=== PATIENT | male | born 1960 | race African-American/Black ===

== ENCOUNTER 2018-01-13 16:41 | Emergency (ER) | payer SELFPAY ==
[~2018-01-13] VITALS: Ht 185.4 cm; Wt 90.7 kg
[2018-01-13] MEDS ORDERED: Norco 5mg/325mg tab ORAL ONE (17:30)
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
[2018-01-13] MEDS ORDERED: ROBAXIN-750750 MG PO (17:42)
[2018-01-13] MEDS ORDERED: IBUPROFEN600 MG ORAL (17:42)
[2018-01-13] MEDS ORDERED: KEFLEX500 MG ORAL (17:42)
[2018-01-13 17:59] VITALS: BP 170/92
--- NOTE | 2018-01-14 10:47 | Diagnostic Imaging Report ---
Indication: Trauma Technique: XRAY Chest 1v Comparison: None Findings: Heart size and mediastinal contours are within normal limits. There is no focal airspace consolidation, pleural effusion or pneumothorax. There are fracture deformities of the posterior right fifth sixth and seventh ribs as there is some callus formation suggesting these are subacute or chronic. There are some degenerative changes of the spine. IMPRESSION: Fracture deformities of the right posterior fifth, sixth and seventh ribs, likely chronic as there is suggestion of some callus. Correlation with physical exam/site of tenderness recommended. No evidence of pneumothorax. No radiographic evidence of acute cardiopulmonary disease.
--- NOTE | 2018-01-14 10:50 | Diagnostic Imaging Report ---
Indication: Pain status post fall Technique: XRAY Knee 3v LT Comparison: None Findings: Orthopedic hardware in place with intramedullary tibial anthony affixed by 2 screws. No hardware-related complications evident. There is no evidence of acute fracture or dislocation. There is mild degenerative change with some narrowing of the medial femorotibial compartment and some small patellar osteophytes. No significant suprapatellar joint effusion. There are atherosclerotic vascular calcifications. IMPRESSION: No evidence of acute fracture or dislocation. Tibial orthopedic hardware partially visualized. No appreciable hardware-related complications.
== END 2018-01-13 18:30 | disposition home or self-care (01) ==
LOC: EMR 18:23
DX: S80.212A Abrasion, left knee, initial encounter (principal); S70.11XA Contusion of right thigh, initial encounter; S70.02XA Contusion of left hip, initial encounter; V09.9XXA Pedestrian injured in unspecified transport accident, initial encounter; Y92.89 Other specified places as the place of occurrence of the external cause
CPT/HCPCS: 71045; 99284